=== PATIENT | male | born 1955 | race Hispanic/Latino ===

== ENCOUNTER → 2018-02-13 | Outpatient (CLI) | payer BC ==
--- NOTE | 2018-02-13 09:53 | Diagnostic Imaging Report ---
PROCEDURE:CT OF LT HAND AND WRIST WITHOUT CONTRAST COMPARISON:None. INDICATIONS:FALL, TRAUMA TO HAND AND WRIST FINDINGS: No evidence of fracture or malalignment. Subcutaneous edema in the palmar aspect of the hand and wrist. Well corticated bony fragment adjacent to the triquetrum, which may represent sequela of prior trauma. Mild intercarpal and distal radial degenerative changes with subchondral sclerosis and cystic change. Mild degenerative changes with joint space narrowing at the first carpometacarpal joint. No evidence of osteopenia. There is an erosion in the capitatate and scaphoid. CONCLUSION: No evidence of fracture or malalignment. Subcutaneous edema in the palmar aspect of the hand and wrist. Mild wrist degenerative changes. Non-specific erosions in the capitate and scaphoid. Dictated by: FRANCIS ORTIZ M.D. on 02/13/2018 at 9:58 Electronically approved by: FRANCIS ORTIZ M.D. on 02/13/2018 at 9:58
--- NOTE | 2018-02-13 09:54 | Diagnostic Imaging Report ---
PROCEDURE: CT OF LT HAND AND WRIST WITHOUT CONTRAST COMPARISON: None. INDICATIONS: FALL, TRAUMA TO HAND AND WRIST FINDINGS: No evidence of fracture or malalignment. Subcutaneous edema in the palmar aspect of the hand and wrist. Well corticated bony fragment adjacent to the triquetrum, which may represent sequela of prior trauma. Mild intercarpal and distal radial degenerative changes with subchondral sclerosis and cystic change. Mild degenerative changes with joint space narrowing at the first carpometacarpal joint. No evidence of osteopenia. There is an erosion in the capitatate and scaphoid. CONCLUSION: No evidence of fracture or malalignment. Subcutaneous edema in the palmar aspect of the hand and wrist. Mild wrist degenerative changes. Non-specific erosions in the capitate and scaphoid. Dictated by: FRANCIS ORTIZ M.D. on 02/13/2018 at 9:59 Electronically approved by: FRANCIS ORTIZ M.D. on 02/13/2018 at 9:59
== END ==
LOC: CT 08:46
PROVIDERS: ATTEND Plastic Surgery
DX: M25.532 Pain in left wrist (principal); W18.39XA Other fall on same level, initial encounter